=== PATIENT | female | born 1955 | race Caucasian/White ===

== ENCOUNTER 2023-09-19 10:42 | Emergency (ER) | payer OTHER, SELFPAY ==
[2023-09-19] VITALS (21 sets, daily range): BP systolic 167–269; BP diastolic 82–135; PULSE 66–85; RESP 12–21; TEMP 36.6; O2SAT 92–97; BMI 36.6
[2023-09-19] MEDS: ONDANSETRON 4 MG/2 ML INJ IV (11:28)
[2023-09-19 11:29] LABS: Bacteria Urine Few (2-10); Culture Indicated Urine Cult Not Indicated; Hyaline Casts Urine 0-1/LPF; RBC Urine 0-1/HPF (0-5/HPF); Squamous Epithelial Cell Urine 1-5 /HPF (0-5/HPF); Urine Volume 10mL (spun); WBC Urine 0-1/HPF (0-5/HPF)
[2023-09-19 11:32] LABS: Add Manual Diff / Slide Review NO; Basophils Absolute Auto 0 /uL (0-100); Basophils Percent Auto 0.5 % (0-2); Eosinophils Absolute Auto 100 /uL (0-450); Eosinophils Percent Auto 1.7 % (2-4); Hematocrit 41.2 % (36-46); Hemoglobin 13.7 g/dL (12.0-16.0); Lymphocytes Absolute Auto 1900 /uL (1100-4500); Lymphocytes Percent Auto 23.1 % (25-40); Mean Corpuscular HGB Conc 33.2 % (30-36); Mean Corpuscular Hemoglobin 28.5 PG (26-34); Mean Corpuscular Volume 85.9 fL (80-100); Monocytes Absolute Auto 600 /uL (0-900); Monocytes Percent Auto 7.1 % (3-14); Neutrophils Absolute Auto 5500 /uL (1500-7000); Neutrophils Percent Auto 67.6 % (50-75); Platelet Count 229 X10^3/uL (150-400); Red Cell Distribution Width 13.7 % (11.6-14.8); White Blood Cell Count 8.2 X10^3/uL (4.5-11.0)
--- NOTE | 2023-09-19 11:38 | PC.NURSE ---
Pt reports sudden onset left flank pain which radiates to her abdomen. Denies change in bowel pattern with multiple normal bm's today. Pt unable to find a position of comfort. She expresses gassy, burping and intermittent nausea. Denies history of abdominal surgeries. Takes BP medication (lisinopril and metoprolol) but reports being told at her last appointment she may need to have a change in her medications d/t HTN. Pt denies headache, vision changes, SOB, chest pain. Denies urinary symptoms.
[2023-09-19 11:40] LABS: Alanine Aminotransferase 24 IU/L (<35); Albumin 4.6 g/dL (3.5-5.0); Albumin Globulin Ratio 1.3 (1.0-2.8); Alkaline Phosphatase 79 U/L (38-126); Aspartate Aminotransferase 31 IU/L (14-36); BUN Creatinine Ratio 15.5 (6-22); Bilirubin Total 1.2 mg/dL (0.2-1.3); Blood Urea Nitrogen 11 mg/dL (7-17); Calcium 9.5 mg/dL (8.4-10.2); Carbon Dioxide 26 mmol/L (22-32); Chloride 106 mmol/L (98-107); Estimated Glomerular Filt Rate > 60 mL/min (>60); Globulin 3.5 g/dL (1.7-4.1); Glucose 105 mg/dL (80-110); HEMOLYSIS < 15 (0-50); Lipase 31 U/L (23-300); Potassium 3.8 mmol/L (3.4-5.1); Sodium 139 mmol/L (137-145); Total Protein 8.1 g/dL (6.3-8.2)
--- NOTE | 2023-09-19 11:42 | PC.NURSE ---
Provider at bedside for evaluation and notified of HTN.
--- NOTE | 2023-09-19 11:45 | DI.CT.S_ITS ---
PROCEDURE: CT ANGIO CHEST ABDOMEN PELVIS INDICATIONS: low back pain, dissection protocol TECHNIQUE: Precontrast 5 mm thick sections acquired from the lung apices to the iliac crests. After the administration of intravenous contrast, 2.5 mm thick sections again acquired from the lung apices to the iliac crests. Maximum intensity projection (MIP) oblique sagittal and coronal reformats were then acquired. For radiation dose reduction, the following was used: automated exposure control. COMPARISON: None. FINDINGS: Image quality: Diagnostic. AORTA: No aortic aneurysm. No acute aortic syndrome. CHEST: Lower Neck: No enlarged lymph nodes. Thyroid: No thyroid nodules which require sonographic evaluation. Axillae: No enlarged lymph nodes. Chest Wall: Unremarkable. Lungs and Pleura: No pneumothorax or pleural effusions. No consolidation or suspicious nodules. Heart: Heart size is normal. No pericardial effusion. Thoracic Vessels: Pulmonary arteries demonstrate normal size. Mediastinum and Gracie: No enlarged lymph nodes. Esophagus: No wall thickening. No hiatal hernia. ABDOMEN: Liver: No solid mass. Gallbladder: No radiopaque gallstones or wall thickening. Biliary ducts: No biliary dilation. Pancreas: No ductal dilation. Spleen: Size is within normal limits. Adrenal Glands: No adrenal nodules. Kidneys and Ureters: No hydronephrosis. No solid mass. No complex renal cystic lesion which requires follow up. Stomach and Bowel: Normal colonic caliber, without significant wall thickening. Appendix is within normal limits. Peritoneum: No abnormal intraperitoneal fluid. No free air. Ventral Wall: No hernia. Abdominal Nodes: No retroperitoneal or mesenteric adenopathy by size criteria. Vessels: Inferior vena cava is normal in size. PELVIS: Pelvic Organs: Unremarkable. Bladder: Unremarkable. Pelvic Nodes: No enlarged lymph nodes. Miscellaneous: No inguinal hernias are seen. Bones: Unremarkable. IMPRESSION: 1. No acute process involving the thoracoabdominal aorta. 2. Normal appendix. Dictated by: Brian Shine M.D. on 09/19/2023 at 13:09 Approved by: Brian Shine M.D. on 09/19/2023 at 13:18
[2023-09-19] MEDS: MORPHINE 2 MG/ML INJ IV ×2 (11:49→12:59)
--- NOTE | 2023-09-19 11:55 | ED_ITS ---
HPI - Back Pain/Injury <Josi Segura PA-C - Last Filed: 09/19/23 14:00> General Chief Complaint: Back Pain/Injury Stated Complaint: experiencing alot of lower back pain Time Seen by Provider: 09/19/23 11:27 Source: patient History of Present Illness HPI Narrative: Patient is a 68-year-old female with a past medical history of hypertension and obesity, on lisinopril and metoprolol, as well as simvastatin. She denies any significant medical problems, no history of SC, not on blood thinners. She presents with acute onset of left lower back pain this morning after waking. She denies injury to her back, recent strain or new exercise. She did take her blood pressure medicine when she woke up but is very hypertensive on arrival to the ER. The pain was initially 9/10, now 6/10. She denies urinary symptoms, blood in urine. She endorses mild nausea with no vomiting, has had multiple normal bowel movements today, which is not unusual for her. No history of kidney stones, diverticulitis, blood clots. Pain starts in the left low back and radiates up the back and across the left hip. She denies abdominal pain. She is a former smoker, currently drinks alcohol. Denies loss of bowel or bladder control, saddle anesthesia, weakness. Related Data Allergies Allergy/AdvReac Type Severity Reaction Status Date / Time adhesive Allergy Rash Verified 09/19/23 11:12 aspirin Allergy Hives Verified 09/19/23 11:12 Review of Systems <Josi Segura PA-C - Last Filed: 09/19/23 14:00> Review of Systems ROS Unobtainable: All systems reviewed & are unremarkable except as noted in HPI and below Patient History <Josi Segura PA-C - Last Filed: 09/19/23 14:00> Social History Smoking Status: Former smoker Smoking Status: Former smoker tobacco type: cigarettes alcohol intake frequency: 3 or more drinks per day Substance Use Type: does not use Exam <Josi Segura PA-C - Last Filed: 09/19/23 14:00> Narrative Exam Narrative: GENERAL: 68 year old patient appears stated age. Well-developed patient, in mild acute distress. NEURO: AOx3. HEAD: Atraumatic. Normocephalic. EYES: Pupils equal round and reactive. Extraocular motions intact. No scleral icterus. No injection or drainage. ENT: Nose without bleeding or purulent drainage. Airway patent. NECK: Trachea midline. Non tender CARDIOVASCULAR: Regular rate and rhythm without murmurs, gallops, or rubs. RESPIRATORY: Clear to auscultation. Breath sounds equal bilaterally. No wheezes, rales, or rhonchi. GASTROINTESTINAL: Hyperactive bowel tones. Abdomen soft, non-tender, nondistended. SPINE: No midline tenderness or step-offs. Pain with palpation over the left SI and the soft tissues of the left low back. No pain with palpation over the hip. Lower extremity strength is 5/5. EXTREMITIES: No edema or joint tenderness. SKIN: No rash or erythema of visible areas Initial Vital Signs Initial Vital Signs: Vital Signs Pulse Oximetry 97 09/19/23 10:52 <Katharina Snow DO - Last Filed: 09/24/23 07:22> Initial Vital Signs Initial Vital Signs: Vital Signs Pulse Oximetry 97 09/19/23 10:52 Course <Josi Segura PA-C - Last Filed: 09/19/23 14:00> Orders Ordered: Discontinued Medications Ketorolac Tromethamine (Ketorolac 30 Mg/Ml Vial) 15 mg IV NOW ONE Stop: 09/19/23 12:42 Last Admin: 09/19/23 13:41 Dose: Not Given Documented By: SB Labetalol HCl (Labetalol 20 Mg/4 Ml Syringe) 20 mg IV NOW ONE Stop: 09/19/23 12:18 Last Admin: 09/19/23 12:29 Dose: 20 mg Documented By: SPF Morphine Sulfate (Morphine 2 Mg/Ml Inj) 2 mg IV NOW ONE Stop: 09/19/23 11:42 Last Admin: 09/19/23 11:49 Dose: 2 mg Documented By: SPF Morphine Sulfate (Morphine 2 Mg/Ml Inj) 2 mg IV NOW ONE Stop: 09/19/23 12:54 Last Admin: 09/19/23 12:59 Dose: 2 mg Documented By: YASMIN Ondansetron HCl (Ondansetron 4 Mg Odt) 4 mg PO NOW PRN PRN Reason: Nausea And Vomiting Ondansetron HCl (Ondansetron 4 Mg/2 Ml Inj) 4 mg IV NOW PRN PRN Reason: Nausea And Vomiting Last Admin: 09/19/23 11:28 Dose: 4 mg Documented By: JOANNE Vital Signs Vital signs: Vital Signs - 8 hr 09/19/23 10:52 09/19/23 10:53 09/19/23 10:53 Temperature Pulse Rate 75 Respiratory Rate Blood Pressure 269/135 H Pulse Oximetry 97 96 Oxygen Delivery Method Room Air 09/19/23 10:55 09/19/23 10:55 09/19/23 11:02 Temperature Pulse Rate 72 Respiratory Rate Blood Pressure 241/123 H Pulse Oximetry 97 95 Oxygen Delivery Method Room Air 09/19/23 11:03 09/19/23 11:03 09/19/23 11:08 Temperature 97.8 F Pulse Rate 75 76 Respiratory Rate 18 Blood Pressure 237/117 H 237/117 H Pulse Oximetry 95 96 Oxygen Delivery Method Room Air 09/19/23 11:30 09/19/23 11:30 09/19/23 12:06 Temperature Pulse Rate 68 85 Respiratory Rate Blood Pressure 230/116 H Pulse Oximetry 97 92 Oxygen Delivery Method Room Air 09/19/23 12:07 09/19/23 12:07 09/19/23 12:29 Temperature Pulse Rate 79 76 Respiratory Rate Blood Pressure 246/126 H 246/126 H Pulse Oximetry 94 Oxygen Delivery Method 09/19/23 12:30 09/19/23 12:30 09/19/23 12:36 Temperature Pulse Rate 74 74 Respiratory Rate 16 Blood Pressure 246/114 H Pulse Oximetry 96 97 Oxygen Delivery Method Room Air 09/19/23 12:36 09/19/23 12:40 09/19/23 12:40 Temperature Pulse Rate 66 Respiratory Rate Blood Pressure 236/109 H 209/108 H Pulse Oximetry 96 Oxygen Delivery Method 09/19/23 12:50 09/19/23 12:50 09/19/23 13:00 Temperature Pulse Rate 66 68 Respiratory Rate 12 Blood Pressure 215/118 H Pulse Oximetry 96 94 Oxygen Delivery Method Room Air 09/19/23 13:00 09/19/23 13:04 09/19/23 13:04 Temperature Pulse Rate 72 Respiratory Rate 17 Blood Pressure 211/120 H 200/94 H Pulse Oximetry 96 Oxygen Delivery Method 09/19/23 13:10 09/19/23 13:10 09/19/23 13:11 Temperature Pulse Rate 74 74 Respiratory Rate 19 Blood Pressure 183/86 H 183/86 H Pulse Oximetry 93 Oxygen Delivery Method Room Air 09/19/23 13:20 09/19/23 13:20 09/19/23 13:30 Temperature Pulse Rate 69 70 Respiratory Rate 13 21 Blood Pressure 171/84 H Pulse Oximetry 93 96 Oxygen Delivery Method Room Air 09/19/23 13:30 09/19/23 13:40 09/19/23 13:40 Temperature Pulse Rate 70 Respiratory Rate 16 Blood Pressure 167/82 H 172/88 H Pulse Oximetry 92 Oxygen Delivery Method Room Air <Katharina Snow DO - Last Filed: 09/24/23 07:22> Orders Ordered: Discontinued Medications Ketorolac Tromethamine (Ketorolac 30 Mg/Ml Vial) 15 mg IV NOW ONE Stop: 09/19/23 12:42 Last Admin: 09/19/23 13:41 Dose: Not Given Documented By: LESLIE Labetalol HCl (Labetalol 20 Mg/4 Ml Syringe) 20 mg IV NOW ONE Stop: 09/19/23 12:18 Last Admin: 09/19/23 12:29 Dose: 20 mg Documented By: JOANNE Morphine Sulfate (Morphine 2 Mg/Ml Inj) 2 mg IV NOW ONE Stop: 09/19/23 11:42 Last Admin: 09/19/23 11:49 Dose: 2 mg Documented By: JOANNE Morphine Sulfate (Morphine 2 Mg/Ml Inj) 2 mg IV NOW ONE Stop: 09/19/23 12:54 Last Admin: 09/19/23 12:59 Dose: 2 mg Documented By: YASMIN Ondansetron HCl (Ondansetron 4 Mg Odt) 4 mg PO NOW PRN PRN Reason: Nausea And Vomiting Ondansetron HCl (Ondansetron 4 Mg/2 Ml Inj) 4 mg IV NOW PRN PRN Reason: Nausea And Vomiting Last Admin: 09/19/23 11:28 Dose: 4 mg Documented By: JOANNE Vital Signs Vital signs: Vital Signs - 8 hr 09/19/23 10:52 09/19/23 10:53 09/19/23 10:53 Temperature Pulse Rate 75 Respiratory Rate Blood Pressure 269/135 H Pulse Oximetry 97 96 Oxygen Delivery Method Room Air 09/19/23 10:55 09/19/23 10:55 09/19/23 11:02 Temperature Pulse Rate 72 Respiratory Rate Blood Pressure 241/123 H Pulse Oximetry 97 95 Oxygen Delivery Method Room Air 09/19/23 11:03 09/19/23 11:03 09/19/23 11:08 Temperature 97.8 F Pulse Rate 75 76 Respiratory Rate 18 Blood Pressure 237/117 H 237/117 H Pulse Oximetry 95 96 Oxygen Delivery Method Room Air 09/19/23 11:30 09/19/23 11:30 09/19/23 12:06 Temperature Pulse Rate 68 85 Respiratory Rate Blood Pressure 230/116 H Pulse Oximetry 97 92 Oxygen Delivery Method Room Air 09/19/23 12:07 09/19/23 12:07 09/19/23 12:29 Temperature Pulse Rate 79 76 Respiratory Rate Blood Pressure 246/126 H 246/126 H Pulse Oximetry 94 Oxygen Delivery Method 09/19/23 12:30 09/19/23 12:30 09/19/23 12:36 Temperature Pulse Rate 74 74 Respiratory Rate 16 Blood Pressure 246/114 H Pulse Oximetry 96 97 Oxygen Delivery Method Room Air 09/19/23 12:36 09/19/23 12:40 09/19/23 12:40 Temperature Pulse Rate 66 Respiratory Rate Blood Pressure 236/109 H 209/108 H Pulse Oximetry 96 Oxygen Delivery Method 09/19/23 12:50 09/19/23 12:50 09/19/23 13:00 Temperature Pulse Rate 66 68 Respiratory Rate 12 Blood Pressure 215/118 H Pulse Oximetry 96 94 Oxygen Delivery Method Room Air 09/19/23 13:00 09/19/23 13:04 09/19/23 13:04 Temperature Pulse Rate 72 Respiratory Rate 17 Blood Pressure 211/120 H 200/94 H Pulse Oximetry 96 Oxygen Delivery Method 09/19/23 13:10 09/19/23 13:10 09/19/23 13:11 Temperature Pulse Rate 74 74 Respiratory Rate 19 Blood Pressure 183/86 H 183/86 H Pulse Oximetry 93 Oxygen Delivery Method Room Air 09/19/23 13:20 09/19/23 13:20 09/19/23 13:30 Temperature Pulse Rate 69 70 Respiratory Rate 13 21 Blood Pressure 171/84 H Pulse Oximetry 93 96 Oxygen Delivery Method Room Air 09/19/23 13:30 09/19/23 13:40 09/19/23 13:40 Temperature Pulse Rate 70 Respiratory Rate 16 Blood Pressure 167/82 H 172/88 H Pulse Oximetry 92 Oxygen Delivery Method Room Air MDM - Back Pain/Injury <Josi Segura PA-C - Last Filed: 09/19/23 14:00> Lab Data 09/19/23 11:07 09/19/23 11:07 Labs: Lab Results 09/19/23 09/19/23 Range/Units 11:00 11:07 WBC 8.2 (4.5-11.0) X10^3/uL RBC 4.80 (4.0-5.2) X10^6/uL Hgb 13.7 (12.0-16.0) g/dL Hct 41.2 (36-46) % MCV 85.9 (80-100) fL MCH 28.5 (26-34) PG MCHC 33.2 (30-36) % RDW 13.7 (11.6-14.8) % Plt Count 229 (150-400) X10^3/uL Neut % (Auto) 67.6 (50-75) % Lymph % (Auto) 23.1 L (25-40) % [place] % (Auto) 7.1 (3-14) % Eos % (Auto) 1.7 L (2-4) % Baso % (Auto) 0.5 (0-2) % Neut # (Auto) 5500 (0947-3608) /uL Lymph # (Auto) 1900 (3801-0252) /uL [place] # (Auto) 600 (0-900) /uL Eos # (Auto) 100 (0-450) /uL Baso # (Auto) 0 (0-100) /uL Sodium 139 (137-145) mmol/L Potassium 3.8 (3.4-5.1) mmol/L Chloride 106 (98-107) mmol/L Carbon Dioxide 26 (22-32) mmol/L BUN 11 (7-17) mg/dL Creatinine 0.71 (0.52-1.04) mg/dL Estimated GFR > 60 (>60) mL/min BUN/Creatinine Ratio 15.5 (6-22) Glucose 105 (80-110) mg/dL Calcium 9.5 (8.4-10.2) mg/dL Total Bilirubin 1.2 (0.2-1.3) mg/dL AST 31 (14-36) IU/L ALT 24 (<35) IU/L Alkaline Phosphatase 79 (38-126) U/L Total Protein 8.1 (6.3-8.2) g/dL Albumin 4.6 (3.5-5.0) g/dL Globulin 3.5 (1.7-4.1) g/dL Albumin/Globulin Ratio 1.3 (1.0-2.8) Lipase 31 (23-300) U/L Urine RBC 0-1/hpf (0-5/HPF) Urine WBC 0-1/hpf (0-5/HPF) Ur Squamous Epith Cells 1-5 /hpf (0-5/HPF) Urine Bacteria Few (2-10) H (None) Hyaline Casts 0-1/lpf (None) Ur Culture Indicated? Cult not indicated Vol Urine Centrifuged 10ml (spun) Urine Dip Bedside Urine Glucose Negative Bedside Urine Bilirubin - Negative Bedside Urine Ketone - Negative Urine Specific Painter 1.025 Bedside Urine Occult Blood +/- Bedside Urine pH 6.0 Bedside Urine Protein +/- 15 Bedside Urine Urobilinogen - Negative Bedside Urine Nitrite - Negative Bedside Urine Leukocytes - Negative Esterase Imaging Data CTA chest/abd/pelvis: Radiologist's Impression: PROCEDURE: CT ANGIO CHEST ABDOMEN PELVIS INDICATIONS: low back pain, dissection protocol TECHNIQUE: Precontrast 5 mm thick sections acquired from the lung apices to the iliac crests. After the administration of intravenous contrast, 2.5 mm thick sections again acquired from the lung apices to the iliac crests. Maximum intensity projection (MIP) oblique sagittal and coronal reformats were then acquired. For radiation dose reduction, the following was used: automated exposure control. COMPARISON: None. FINDINGS: Image quality: Diagnostic. AORTA: No aortic aneurysm. No acute aortic syndrome. CHEST: Lower Neck: No enlarged lymph nodes. Thyroid: No thyroid nodules which require sonographic evaluation. Axillae: No enlarged lymph nodes. Chest Wall: Unremarkable. Lungs and Pleura: No pneumothorax or pleural effusions. No consolidation or suspicious nodules. Heart: Heart size is normal. No pericardial effusion. Thoracic Vessels: Pulmonary arteries demonstrate normal size. Mediastinum and Gracie: No enlarged lymph nodes. Esophagus: No wall thickening. No hiatal hernia. ABDOMEN: Liver: No solid mass. Gallbladder: No radiopaque gallstones or wall thickening. Biliary ducts: No biliary dilation. Pancreas: No ductal dilation. Spleen: Size is within normal limits. Adrenal Glands: No adrenal nodules. Kidneys and Ureters: No hydronephrosis. No solid mass. No complex renal cystic lesion which requires follow up. Stomach and Bowel: Normal colonic caliber, without significant wall thickening. Appendix is within normal limits. Peritoneum: No abnormal intraperitoneal fluid. No free air. Ventral Wall: No hernia. Abdominal Nodes: No retroperitoneal or mesenteric adenopathy by size criteria. Vessels: Inferior vena cava is normal in size. PELVIS: Pelvic Organs: Unremarkable. Bladder: Unremarkable. Pelvic Nodes: No enlarged lymph nodes. Miscellaneous: No inguinal hernias are seen. Bones: Unremarkable. IMPRESSION: 1. No acute process involving the thoracoabdominal aorta. 2. Normal appendix. Dictated by: Brian Shine M.D. on 09/19/2023 at 13:09 Approved by: Brian Shine M.D. on 09/19/2023 at 13:18 MDM Narrative Medical decision making narrative: Multiple etiologies for patient's symptoms considered including, but not limited to: Aortic dissection, hypertensive urgency, hypertensive emergency, musculoskeletal low back pain, kidney stone, pyelonephritis, diverticulitis Patient with acute onset severe left lower back pain with significant hypertension upon arrival to emergency department, concern for possible aortic dissection. CT angiogram negative. Hypertension improved after 20 mg of IV labetalol and pain control with 4 mg morphine. Labs without clinically significant abnormality, urine with few bacteria but no significant suspicion for infection and patient has no urinary symptoms. EKG without acute ST changes and no complaint of chest pain or shortness of breath. Patient feels better on reassessment. Suspect acute muscular low back pain with hypertension. Advised close follow up with PCP regarding titration of antihypertensives. Supportive care for back pain. Strict return precautions if she develops new symptoms or if things change. Patient states understanding. Patient's symptoms improved over duration of stay with above-stated therapies. Findings and discharge diagnosis discussed with patient/family followed by verbalization of understanding Return precautions discussed with patient/family whom verbalize understanding of diagnosis and plan <Katharina Snow, - Last Filed: 09/24/23 07:22> Lab Data Labs: Lab Results 09/19/23 09/19/23 Range/Units 11:00 11:07 WBC 8.2 (4.5-11.0) X10^3/uL RBC 4.80 (4.0-5.2) X10^6/uL Hgb 13.7 (12.0-16.0) g/dL Hct 41.2 (36-46) % MCV 85.9 (80-100) fL MCH 28.5 (26-34) PG MCHC 33.2 (30-36) % RDW 13.7 (11.6-14.8) % Plt Count 229 (150-400) X10^3/uL Neut % (Auto) 67.6 (50-75) % Lymph % (Auto) 23.1 L (25-40) % [place] % (Auto) 7.1 (3-14) % Eos % (Auto) 1.7 L (2-4) % Baso % (Auto) 0.5 (0-2) % Neut # (Auto) 5500 (4799-3337) /uL Lymph # (Auto) 1900 (8698-1491) /uL [place] # (Auto) 600 (0-900) /uL Eos # (Auto) 100 (0-450) /uL Baso # (Auto) 0 (0-100) /uL Sodium 139 (137-145) mmol/L Potassium 3.8 (3.4-5.1) mmol/L Chloride 106 (98-107) mmol/L Carbon Dioxide 26 (22-32) mmol/L BUN 11 (7-17) mg/dL Creatinine 0.71 (0.52-1.04) mg/dL Estimated GFR > 60 (>60) mL/min BUN/Creatinine Ratio 15.5 (6-22) Glucose 105 (80-110) mg/dL Calcium 9.5 (8.4-10.2) mg/dL Total Bilirubin 1.2 (0.2-1.3) mg/dL AST 31 (14-36) IU/L ALT 24 (<35) IU/L Alkaline Phosphatase 79 (38-126) U/L Total Protein 8.1 (6.3-8.2) g/dL Albumin 4.6 (3.5-5.0) g/dL Globulin 3.5 (1.7-4.1) g/dL Albumin/Globulin Ratio 1.3 (1.0-2.8) Lipase 31 (23-300) U/L Urine RBC 0-1/hpf (0-5/HPF) Urine WBC 0-1/hpf (0-5/HPF) Ur Squamous Epith Cells 1-5 /hpf (0-5/HPF) Urine Bacteria Few (2-10) H (None) Hyaline Casts 0-1/lpf (None) Ur Culture Indicated? Cult not indicated Vol Urine Centrifuged 10ml (spun) Urine Dip Bedside Urine Glucose Negative Bedside Urine Bilirubin - Negative Bedside Urine Ketone - Negative Urine Specific Painter 1.025 Bedside Urine Occult Blood +/- Bedside Urine pH 6.0 Bedside Urine Protein +/- 15 Bedside Urine Urobilinogen - Negative Bedside Urine Nitrite - Negative Bedside Urine Leukocytes - Negative Esterase ECG Data Attestation: I personally reviewed and interpreted this ECG as follows: Prior ECG tracings: not available for review Interpretation: Sinus rhythm rate of 68 GA 176 QRS 88 QTC of 440. No acute ST elevation, nonspecific change. No priors for comparison. Discharge Plan Departure Patient Disposition: Home Clinical Impression: Acute back pain Qualifiers: Back pain location: low back pain Back pain laterality: left Sciatica presence: without sciatica Qualified Code(s): M54.50 - Low back pain, unspecified Instructions: DI for Low Back Pain Activity Restrictions/Additional Instructions: *You have been diagnosed with acute left low back pain. There is no evidence of infection in your lab work or urine and no evidence of blood clot or changes in blood vessels on the CT scans. We also do not see any kidney stones or abnormality of your internal organs. Your blood pressure was very high when you arrived but has come down appropriately with IV blood pressure medicine. I would recommend checking your blood pressure 1 to 2 times daily and documenting it. Please follow up with your primary care regarding adjusting your medications. If you develop any new symptoms such as fever, chest pain, weakness, headache or inability to urinate, please return for reassessment. You can try heat or ice for comfort as well as take [id number] pain medications. *What to do: *Please continue to take your regular medications as directed. [ ] New medication prescriptions sent to your pharmacy: [ ] [ ] New medication written as a paper prescription [x] No new medications given *Please follow up with your primary care provider in 2-3 days, call for an appointment. Let them know you were seen in the Emergency Department and that we ask that you be seen in follow up. We will electronically transmit a record of today's note if your PCP is in our system *If you do not have a primary care provider please contact the [facility] Resource line at [phone]. They will ask some questions about your medical history and help get you set up with a doctor in the community. *Return to Emergency Department if you should have any new, worsening or concerning symptoms, such as [fever greater than 101 F, shaking chills, worsening pain, persistent vomiting or other concerning symptoms]. Stand Alone Forms: Patient Portal/API ED Sign-out <Katharina Snow DO - Last Filed: 09/24/23 07:22> Cosign ED Attending Mollyature Attestation: I was immediately available in the department for consultation.
--- NOTE | 2023-09-19 12:00 | PC.NURSE ---
Pt states she can get a ride home d/t medications given in the ER.
[2023-09-19] MEDS: LABETALOL 20 MG/4 ML SYRINGE IV (12:29)
== END 2023-09-19 13:55 | disposition home or self-care (01) ==
PROVIDERS: Emergency Medicine; Emergency Provider Physician Assistant
DX: M54.50 Low back pain, unspecified (principal); R10.9 Unspecified abdominal pain
CPT/HCPCS: 36415; 71275; 74174; 80053; 81003; 81015; 83690; 85025; 93005; 93010; 96374; 96375; 96376; 99284; J2270; J2405; Q9967

== ENCOUNTER → 2024-08-15 13:26 | Outpatient (CLI) | payer MEDICARE, SELFPAY ==
[2024-08-15 14:56] LABS: Alanine Aminotransferase 26 IU/L (<35); Albumin Globulin Ratio 1.6 (1.0-2.8); Alkaline Phosphatase 65 U/L (38-126); Aspartate Aminotransferase 37 IU/L (14-36); BUN Creatinine Ratio 18.1 (6-22); Bilirubin Total 1.2 mg/dL (0.2-1.3); Blood Urea Nitrogen 15 mg/dL (7-17); Calcium 9.9 mg/dL (8.4-10.2); Carbon Dioxide 26 mmol/L (22-32); Chloride 102 mmol/L (98-107); Estimated Glomerular Filt Rate > 60 mL/min (>60); Globulin 3.2 g/dL (1.7-4.1); Glucose 89 mg/dL (80-110); HEMOLYSIS < 15 (0-50); Potassium 4.1 mmol/L (3.4-5.1); Sodium 138 mmol/L (137-145); Total Protein 8.2 g/dL (6.3-8.2)
== END ==
PROVIDERS: PCP Internal Medicine; Referring Provider Nurse Practitioner Family; Visit Provider Nurse Practitioner Family
DX: I10 Essential (primary) hypertension (principal)
CPT/HCPCS: 36415; 80053

== ENCOUNTER 2024-10-20 11:52 | Emergency (ER) | payer MEDICARE, SELFPAY ==
[2024-10-20 11:57] VITALS: BP 169/88; PULSE 75; RESP 18; TEMP 36.5; O2SAT 96; BMI 37.8
--- NOTE | 2024-10-20 12:11 | ED_ITS ---
HPI - Back Pain/Injury <Paola Oneil PA-C - Last Filed: 10/20/24 13:22> General Chief Complaint: Back Pain/Injury Stated Complaint: Lower left backpain Time Seen by Provider: 10/20/24 12:06 Source: patient History of Present Illness HPI Narrative: 69-year-old female presents to the ED with 3 days of left-sided lower back pain. Patient slipped in her clogs 3 days ago, tried to break her fall by leaning back towards the counter, struck her left lower back/pelvis against the counter. Since then, patient has had a sharp pain in that area. No numbness, tingling, weakness. Patient is able to bear weight and walk. No urinary difficulties, urinary hesitancy, saddle paresthesias. Related Data Home Medications Medication Instructions Recorded Confirmed atorvastatin PO 12/10/23 12/10/23 lisinopril PO 12/10/23 12/10/23 metoprolol tartrate PO 12/10/23 12/10/23 spironolactone PO 12/10/23 12/10/23 Previous Rx's Medication Instructions Recorded erythromycin 5 mg/gram (0.5 %) eye 0.5 inch ophthalmic (eye) 5XD 12/10/23 ointment Bacterial conjunctivitis #3.5 grams Allergies Allergy/AdvReac Type Severity Reaction Status Date / Time adhesive Allergy Rash Verified 12/10/23 11:56 aspirin Allergy Hives Verified 12/10/23 11:56 Review of Systems <Paola Oneil PA-C - Last Filed: 10/20/24 13:22> Constitutional Constitutional: Denies chills, Denies fatigue, Denies fever(s), Denies frequent falls, Denies lethargy and Denies weakness Eyes Eyes: Denies change in vision, Denies eye discharge, Denies irritation and Denies loss of vision ENT Ears, Nose, Mouth, and Throat: Denies change in voice, Denies dizziness, Denies neck pain, Denies sore throat and Denies throat swelling Cardiovascular Cardiovascular: Denies chest pain, Denies irregular heart rhythm, Denies lightheadedness, Denies palpitations, Denies dyspnea, Denies dyspnea on exertion and Denies orthopnea Respiratory Respiratory: Denies cough, Denies dyspnea, Denies dyspnea on exertion and Denies wheezing Gastrointestinal Gastrointestinal: Denies abdominal pain, Denies change in bowel habits, Denies diarrhea, Denies nausea and Denies vomiting Musculoskeletal Musculoskeletal: Denies neck pain and Denies numbness Comments: Left-sided lower back pain Integumentary/Breasts Skin/Breast: Denies pruritus, Denies erythema, Denies rash and Denies wounds Neurologic Neurologic: Denies behavioral changes, Denies confusion, Denies dizziness, Denies frequent falls, Denies loss of vision, Denies numbness and Denies weakness Psychiatric Psychiatric: Denies anxiety, Denies behavioral changes, Denies confusion, Denies depression, Denies homicidal ideation and Denies suicidal ideation Endocrine Endocrine: Denies fatigue, Denies flushing and Denies palpitations Hematologic/Lymphatic Hematologic/Lymphatic: Denies easy bruising Allergic/Immunologic Allergic/Immunologic: Denies urticaria, Denies throat swelling and Denies wheezing Patient History <Paola Oneil PA-C - Last Filed: 10/20/24 13:22> Social History Smoking Status: Current every day smoker Smoking Status: Current every day smoker tobacco type: vaping alcohol intake frequency: 3 or more drinks per day Exam <Paola Oneil PA-C - Last Filed: 10/20/24 13:22> Narrative Exam Narrative: Const General:?cooperative, healthy appearing and comfortable [facility] Head:?normal to inspection Ears:?hearing grossly normal bilaterally Nose:?external nose normal Face and sinus:?normal facial exam and sinuses nontender Mouth:?oral mucosae normal Throat:?posterior oropharynx normal Eyes General:?appearance normal, both eyes and all related structures Neck Neck:?normal visual inspection and no lymphadenopathy noted Resp Effort & Inspection:?normal respiratory effort Auscultation:?clear to auscultation bilaterally Cardio Rate:?regular rate Rhythm:?regular rhythm Musculoskeletal There is some tenderness to palpation on the left lower back, lateral to the sacral region. No bruising. Patient is able to bear weight and walk. Neurovascularly intact Neuro General:?patient alert, patient awake and patient oriented x3 Initial Vital Signs Initial Vital Signs: Vital Signs Temperature 97.7 F 10/20/24 11:57 Pulse Rate 75 10/20/24 11:57 Respiratory Rate 18 10/20/24 11:57 Blood Pressure 169/88 H 10/20/24 11:57 Pulse Oximetry 96 10/20/24 11:57 Oxygen Delivery Method Room Air 10/20/24 11:57 <DO Antonio Swanson Last Filed: 10/21/24 09:25> Initial Vital Signs Initial Vital Signs: Vital Signs Temperature 97.7 F 10/20/24 11:57 Pulse Rate 75 10/20/24 11:57 Respiratory Rate 18 10/20/24 11:57 Blood Pressure 169/88 H 10/20/24 11:57 Pulse Oximetry 96 10/20/24 11:57 Oxygen Delivery Method Room Air 10/20/24 11:57 Course <Paola Oneil PA-C - Last Filed: 10/20/24 13:22> Orders Ordered: Discontinued Medications Lidocaine (Lidocaine 5% Patch) 1 each TOP NOW ONE Stop: 10/20/24 13:31 Last Admin: 10/20/24 13:25 Dose: 1 each Documented By: TRUDI Vital Signs Vital signs: Vital Signs - 8 hr 10/20/24 11:57 Temperature 97.7 F Pulse Rate 75 Respiratory Rate 18 Blood Pressure 169/88 H Pulse Oximetry 96 Oxygen Delivery Method Room Air <Katharina Snow DO - Last Filed: 10/21/24 09:25> Orders Ordered: Discontinued Medications Lidocaine (Lidocaine 5% Patch) 1 each TOP NOW ONE Stop: 10/20/24 13:31 Last Admin: 10/20/24 13:25 Dose: 1 each Documented By: TRUDI Vital Signs Vital signs: Vital Signs - 8 hr 10/20/24 11:57 Temperature 97.7 F Pulse Rate 75 Respiratory Rate 18 Blood Pressure 169/88 H Pulse Oximetry 96 Oxygen Delivery Method Room Air MDM - Back Pain/Injury <Paola Oneil PA-C - Last Filed: 10/20/24 13:22> MDM Narrative Medical decision making narrative: 69-year-old female presents to the ED with 3 days of left-sided lower back pain. Will obtain x-rays to rule out fracture/dislocation. X-rays without acute findings. Patient's symptoms most consistent with a contusion/lower back sprain/strain. Lidocaine patch was applied. Recommend continuing a lidocaine patches, Tylenol, ibuprofen, heat packs. Recommend follow-up with PCP as soon as possible. ED return precautions discussed with patient. Patient verbalized understanding. Medical records reviewed: Yes Discharge Plan Departure Patient Disposition: Home Clinical Impression: Acute back pain Qualifiers: Back pain location: low back pain Back pain laterality: left Sciatica presence: without sciatica Qualified Code(s): M54.50 - Low back pain, unspecified Instructions: DI for Low Back Pain Activity Restrictions/Additional Instructions: You were evaluated in the ED today for a lower back injury. Your x-rays were normal. It appears that you have a contusion/sprain of the lower back. A lidocaine patch was applied in the ED today. You may continue using lidocaine patches which are available [id number] under the trade name [id number]. You may take Tylenol, ibuprofen. You may apply heat packs. Please follow-up with your PCP as soon as possible. Return to the ED if you have worsening symptoms, urinary difficulties. Prescriptions: No Action atorvastatin PO lisinopril PO metoprolol tartrate PO spironolactone PO erythromycin 5 mg/gram (0.5 %) ointment 0.5 inch ophthalmic (eye) 5XD Qty: 3.5 0RF Referrals: Josephine Valdovinos MD [Primary Care Provider] - Stand Alone Forms: Patient Portal/API/Survey ED Sign-out <Katharina Snow DO - Last Filed: 10/21/24 09:25> Cosign ED Attending Cosgadielature Attestation: I was immediately available in the department for consultation.
--- NOTE | 2024-10-20 12:18 | DI.RAD.S_ITS ---
PROCEDURE: XR PELVIS 1-2V INDICATIONS: fall into countertop, left lower back/hip pain. TECHNIQUE: 1 view(s) of the pelvis acquired. COMPARISON: None. FINDINGS: Bones: No fractures or dislocations. No suspicious bony lesions. Soft tissues: Visualized bowel gas pattern is normal. No suspicious soft tissue calcifications. IMPRESSION: No acute bony abnormality. Dictated by: Patrick Dill M.D. on 10/20/2024 at 12:58 Approved by: Patrick Dill M.D. on 10/20/2024 at 12:58
--- NOTE | 2024-10-20 12:18 | DI.RAD.S_ITS ---
PROCEDURE: XR SACRUM COCCYX MIN 2V INDICATIONS: fall into countertop, left lower back/hip pain. TECHNIQUE: 3 views of the sacrum and coccyx acquired. COMPARISON: None. FINDINGS: Bones: No fractures or dislocations. No suspicious bony lesions. Soft tissues: Visualized bowel gas pattern is normal. No suspicious soft tissue densities. IMPRESSION: No displaced fracture. Dictated by: Patrick Dill M.D. on 10/20/2024 at 12:58 Approved by: Patrick Dill M.D. on 10/20/2024 at 12:59
--- NOTE | 2024-10-20 12:21 | DI.RAD.S_ITS ---
PROCEDURE: XR LUMBAR SPINE 2-3V INDICATIONS: fall into countertop TECHNIQUE: 3 views of the lumbar spine were acquired. COMPARISON: None. FINDINGS: Bones: 5 [id number] vertebrae are present. Degenerative retrolisthesis of L2 on L3 and L3 on L4. No vertebral body compression fractures. No suspicious bony lesions. Moderate to severe, multilevel degenerative disc disease and diffuse facet arthrosis. Soft tissues: Overlying bowel gas pattern is normal. No suspicious soft tissue calcifications. IMPRESSION: No acute bony abnormality. Moderate to severe degenerative disc disease. Dictated by: Patrick Dill M.D. on 10/20/2024 at 12:59 Approved by: Patrick Dill M.D. on 10/20/2024 at 13:00
[2024-10-20] MEDS: LIDOCAINE 5% PATCH 1 EACH TOP (13:25)
[2024-10-20 13:27] VITALS: BP 196/92; PULSE 70; RESP 18; O2SAT 96
== END 2024-10-20 13:28 | disposition home or self-care (01) ==
PROVIDERS: Emergency Provider Student in an Organized Health Care Education/Training Program; PCP Internal Medicine
DX: M54.50 Low back pain, unspecified (principal); W01.198A Fall on same level from slipping, tripping and stumbling with subsequent striking against other object, initial encounter
CPT/HCPCS: 72100; 72170; 72220; 99282; 99283